=== PATIENT | female | born 1965 | race Hispanic/Latino ===

== ENCOUNTER 2016-11-22 23:17 | Emergency (ER) | payer OTHER ==
[~2016-11-22] VITALS: Ht 152.4 cm; Wt 68.0 kg
[~2016-11-22 23:17] MED LIST: ATENOLOL25 M1 PO; COLACE100 M1 PO; ENALAPRIL-HCTZ1 EACH PO; FLEXERIL10 MG PO; IBUPROFEN800 M1 PO; LIDODERM1 EACH TOP; MOTRIN600 MG PO; OMEGA-3 ACID ETH1 GM PO; PERCOCET 325 MG1 TA2 PO; SERTRALINE HCL50 MG PO; VITAMIN D250000 UNIT PO
[2016-11-22 23:24] VITALS: BP 140/80
--- NOTE | 2016-11-23 00:30 | ED NECK/BACK PAIN COMPLAINT ---
History of Present Illness General Chief Complaint: Low Back Pain/Injury Stated Complaint: BIBA BACK PAIN Source: patient, old records Exam Limitations: intoxication Vital Signs & Intake/Output Vital Signs & Intake/Output Vital Signs Date Time Temp Pulse Resp B/P Pulse O2 O2 Flow FiO2 Ox Delivery Rate 11/22 2324 97.2 104 18 140/80 ED Intake and Output 11/23 0000 11/22 1200 Intake Total Output Total Balance Patient 150 lb Weight Allergies Coded Allergies: No Known Allergies (08/10/16) Reconcile Medications Atenolol 25 MG TABLET 1 TAB PO DAILY BP (Reported) Docusate Sodium (Colace) 100 MG CAPSULE 1 CAP PO BID PRN CONSTIPATION Enalapril/Hydrochlorothiazide (Enalapril-Hctz 10-25 MG Tablet) 1 EACH TABLET 1 TAB PO DAILY BP (Reported) Ergocalciferol (Vitamin D2) (Vitamin D2) 50,000 UNIT CAPSULE 1 CAP PO QMON SUPPLEMENT (Reported) Ibuprofen 800 MG TABLET 1 TAB PO BID PRN PAIN (Reported) Lidocaine (Lidoderm) 1 EACH ADH..PATCH 1 PAT TOP PRN PAIN (Reported) may wear up to 12 hours Anna-3 Acid Ethyl Esters 1 GM CAPSULE 2 CAP PO BID CHOLESTEROL (Reported) Sertraline HCl 50 MG TABLET 1 TAB PO DAILY MENTAL HEALTH (Reported) Triage Note: ARRIVED ER VIA AMBULANCE PT C/O BACK PAIN HAD SURGERY 06/05/16 AND HAS BEEN IN PAIN SINCE DOCTORS WON'T GIVE HER PAIN MEDICATION JUST TOLD HER TO TAKE TYLENOL Triage Nurses Notes Reviewed? yes HPI: Patient presents for evaluation of low back pain that began in May 2016 after back surgery. Patient states her back always hurts and that her doctors are not giving her any medication for it other than Tylenol. She states the pain is worse with movement, she denies urinary or fecal incontinence or urinary retention. Although she has numbness of the fingers she denies saddle paresthesias. She states her last x-rays were about 2 months ago. She has a follow-up appointment with her back doctor in December. She admits to daily alcohol use but denies cigarette smoking or drug use. Past History Travel History Traveled to [place] past 21 day No Medical History Any Pertinent Medical History? see below for history Neurological: NONE EENT: NONE Cardiovascular: hypertension Respiratory: NONE Gastrointestinal: NONE Hepatic: NONE Renal: NONE Musculoskeletal: NONE Psychiatric: anxiety Endocrine: NONE Surgical History Surgical History: SEE HPI Psychosocial History What is your primary language Nepali Tobacco Use: Never used Family History Hx Contributory? No Review of Systems Review of Systems Constitutional: Reports: no symptoms. Eyes: Reports: no symptoms. Ears, Nose, Throat, Mouth: Reports: no symptoms. Respiratory: Reports: no symptoms. Cardiovascular: Reports: no symptoms. Gastrointestinal/Abdominal: Reports: no symptoms. Musculoskeletal: Reports: back pain. Skin: Reports: no symptoms. Neurological/Psychological: Reports: no symptoms. All Other Systems: Reviewed and Negative Physical Exam Physical Exam Neck: SEE BELOW Comments: Gen.: Well-nourished, well-developed, no acute respiratory distress. EtOH-like odor. Head: Normocephalic, atraumatic. Eyes: Normal inspection bilaterally Ears: Normal inspection bilaterally Nose: Normal inspection Throat/mouth : Moist mucosa Neck: Supple, full range of motion, no goiter Heart: Regular rate and rhythm, no murmurs rubs or gallops Lungs: Quiet respirations Chest: Nontender Back: Normal range of motion, tenderness over lumbar paraspinal musculature, bilateral surgical scars well-healed Abdomen: Nondistended, normal bowel sounds Extremities: Normal range of motion grossly, equal radial pulses, no cyanosis clubbing or edema, lower extremities: Deep tendon reflexes normal bilaterally, sensation intact bilaterally (no saddle paresthesias), straight leg raise test negative bilaterally. Lower extremity muscle strength normal. Neurologic: Cranial nerves grossly intact, speech is slurred on occasion Skin: warm and dry Psychiatric: Calm, cooperative, no apparent delusions or hallucinations Progress Differential Diagnosis: cauda equina syn, herniated disc, myofascial strain Plan of Care: Current Medications Sig/Yaneth Start time Last Medication Dose Stop Time Status Admin Ketorolac 30 MG ONCE ONE 11/23 0045 UNVr Tromethamine 11/23 0046 (Toradol) Comments: Patient admits to daily alcohol intake and appears clinically intoxicated here in the emergency department. I do not feel it would be prudent to prescribe narcotic pain relievers in this situation. Plan anti-inflammatories muscle relaxer and follow-up. Departure Departure Disposition: HOME OR SELF CARE Condition: Stable Clinical Impression Primary Impression: Back pain Qualifiers: Back pain location: low back pain Chronicity: chronic Back pain laterality: bilateral Sciatica presence: without sciatica Qualified Codes: M54.5 - Low back pain; G89.29 - Other chronic pain Secondary Impressions: Degenerative disc disease, lumbar Referrals: UNKNOWN (PCP/Family) Additional Instructions: Rest, no exertion or heavy lifting. Diclofenac and Norflex as prescribed. Follow-up with your back specialist this week. Notify your primary care doctor of this emergency department visit and treatment plan. Return if any concerns or sudden worsening. Departure Forms: Customer Survey General Discharge Information Prescriptions: Current Visit Scripts Diclofenac Sodium 1 TAB PO BID PRN PAIN #14 TAB Orphenadrine Citrate 1 TAB PO BID PRN MUSCLE PAIN/SPASMS #20 TAB
[2016-11-23] MEDS ORDERED: ORPHENADRINE C100 MG PO (00:48)
[2016-11-23] MEDS ORDERED: DICLOFENAC SODI75 M2 PO (00:48)
== END 2016-11-23 01:05 ==
LOC: ERH 23:17
DX: M54.5 Low back pain (principal)
CPT/HCPCS: 96372; J1885

== ENCOUNTER 2017-10-27 15:25 | Emergency (ER) | payer OTHER ==
[~2017-10-27] VITALS: Ht 154.9 cm; Wt 65.8 kg
[~2017-10-27 15:25] MED LIST changes: +DICLOFENAC SODI75 M2 PO; +ORPHENADRINE C100 MG PO
[2017-10-27 15:33] VITALS: BP 176/105
[2017-10-27] MEDS ORDERED: KEFLEX500 M1 PO (18:05)
[2017-10-27] MEDS ORDERED: BACTROBAN15 GM TOP (18:05)
--- NOTE | 2017-10-27 18:07 | ED SKIN/ALLERGY COMPLAINT ---
History of Present Illness General Chief Complaint: Skin Rash/ Abcess Stated Complaint: SENT BY WALK FOR RASH ON FACE Source: patient Exam Limitations: no limitations Vital Signs & Intake/Output Vital Signs & Intake/Output Vital Signs Date Time Temp Pulse Resp B/P B/P Pulse O2 O2 Flow FiO2 Mean Ox Delivery Rate 10/27 1533 98.4 77 18 176/105 98 Room Air Allergies Coded Allergies: No Known Allergies (08/10/16) Reconcile Medications Atenolol 25 MG TABLET 1 TAB PO DAILY BP (Reported) Cephalexin (Keflex) 500 MG CAPSULE 1 CAP PO BID PRN CELLULITIS Diclofenac Sodium 75 MG TABLET.DR 1 TAB PO BID PRN PAIN Docusate Sodium (Colace) 100 MG CAPSULE 1 CAP PO BID PRN CONSTIPATION Enalapril/Hydrochlorothiazide (Enalapril-Hctz 10-25 MG Tablet) 1 EACH TABLET 1 TAB PO DAILY BP (Reported) Ergocalciferol (Vitamin D2) (Vitamin D2) 50,000 UNIT CAPSULE 1 CAP PO QMON SUPPLEMENT (Reported) Ibuprofen 800 MG TABLET 1 TAB PO BID PRN PAIN (Reported) Lidocaine (Lidoderm) 1 EACH ADH..PATCH 1 PAT TOP PRN PAIN (Reported) may wear up to 12 hours Mupirocin Calcium (Bactroban) 2 % CREAM..G. 1 SHAHAB TOP TID DERMATITIS apply to affected area(s) [place]-3 Acid Ethyl Esters 1 GM CAPSULE 2 CAP PO BID CHOLESTEROL (Reported) Orphenadrine Citrate 100 MG TABLET.ER 1 TAB PO BID PRN MUSCLE PAIN/SPASMS Sertraline HCl 50 MG TABLET 1 TAB PO DAILY MENTAL HEALTH (Reported) Triage Note: PT STATES THAT SHE WAS SENT BY WALK IN DUE TO RASH ON HER L SIDE FACE ON HER CHIN. PT STATES THAT SHE HAD A PIMPLE AND SHE WAS PICKING IT AND NOW IT TURNED INTO A PAINFUL RASH. AREA RED AND APPEARS ESCORIATED. Triage Nurses Notes Reviewed? yes Onset: Gradual Duration: getting worse Timing: recent history Severity: moderate Severity Numbers: 5 Location: face HPI: Patient is a 52-year-old female with a past medical history of anxiety and hypertension who presents emergency neck 3 days ago patient noted a "pimple" to the left aspect of her chin region where she stated she popped it and which fluid did discharged and since patient has been noting expanding erythema tenderness and crusty yellow discharge. Patient has been applying [id number] topical bacitracin with no relief of symptoms. Denies any fever chills difficulty swallowing difficulty breathing ear pain and is otherwise without complaints. Past History Travel History Traveled to [place] past 21 day No Medical History Any Pertinent Medical History? see below for history Neurological: NONE EENT: NONE Cardiovascular: hypertension Respiratory: NONE Gastrointestinal: NONE Hepatic: NONE Renal: NONE Musculoskeletal: NONE Psychiatric: anxiety Endocrine: NONE Blood Disorders: NONE Cancer(s): NONE ANODIZER/Reproductive: NONE Surgical History Surgical History: SEE HPI Psychosocial History What is your primary language Yoruba Tobacco Use: Never used ETOH Use: heavy use Illicit Drug Use: denies illicit drug use Family History Hx Contributory? No Review of Systems Review of Systems Constitutional: Reports: no symptoms. EENTM: Reports: no symptoms. Respiratory: Reports: no symptoms. Cardiovascular: Reports: no symptoms. GI: Reports: no symptoms. Genitourinary: Reports: no symptoms. Musculoskeletal: Reports: no symptoms. Skin: Reports: see HPI, erythema, rash. Neurological/Psychological: Reports: no symptoms. Hematologic/Endocrine: Reports: no symptoms. Immunologic/Allergic: Reports: no symptoms. All Other Systems: Reviewed and Negative Physical Exam Physical Exam General Appearance: no apparent distress, alert, comfortable Head: atraumatic Eyes: Bilateral: normal appearance, PERRL. Ears, Nose, Throat: hearing grossly normal, tonsillar exudate (LEFT ) Neck: normal inspection, supple, full range of motion Respiratory: no respiratory distress Extremities: normal inspection Skin Problem Location: face Diagram Head: 1) Noted 3 cm superficial raised scattered yellow crusty erythema with no fluctuance moderate point tenderness noted Progress Differential Diagnosis: abscess/cellulitis, allergic reaction, anaphylaxis, angioedema, contact dermatitis, drug reaction, erythema multiforme, piyriasis rosea, shingles, urticaria Plan of Care: Due to history of present illness and exam findings or suspicion of infectious dermatitis or impetigo versus cellulitis No concerns of sepsis patient is afebrile Departure Departure Disposition: HOME OR SELF CARE Condition: Stable Clinical Impression Primary Impression: Dermatitis Secondary Impressions: Cellulitis of chin Referrals: Evelina Hoyt MD (PCP/Family) Additional Instructions: As discussed please apply the mupirocin cream as directed begin the prescription Keflex as directed for the full course, follow-up with your primary care doctor next week as you have an appointment if symptoms worsen or if YOU develop new concerning symptom return to emergency ROOM, prescriptions waiting at [facility] Departure Forms: Customer Survey General Discharge Information Prescriptions: Current Visit Scripts Cephalexin (Keflex) 1 CAP PO BID PRN CELLULITIS #14 CAP Mupirocin Calcium (Bactroban) 1 SHAHAB TOP TID #30 GM apply to affected area(s)
== END 2017-10-27 18:11 ==
LOC: ERH 15:25
DX: L25.9 Unspecified contact dermatitis, unspecified cause (principal); L03.211 Cellulitis of face